=== PATIENT | female | born 1980 | race Hispanic/Latino ===

== ENCOUNTER 2018-01-21 10:43 | Emergency (ER) | payer SELFPAY ==
--- NOTE | 2018-01-21 11:16 | Emergency Department Report ---
ED HPI - General Chief complaint: Vaginal Bleeding Stated complaint: 3 MONTHS /SPOTTING/ VOMITING Time Seen by Provider: 01/21/18 11:02 Source: patient Mode of arrival: Ambulatory Limitations: No Limitations - History of Present Illness Initial comments: This is a 37-year-old female who presents with vaginal bleed and dorm . Patient states she took a home test 1 month ago and weight in all major Medicaid before going to see her [employer]. Patient states she woke up this morning and went to work and noticed some spotting while wiping and decided to come in for evaluation. Patient denies abdominal pain, low back pain. She is having some nausea but assumed it was related to . Last menstrual period was 10/06/2017, A2. Patient states she did have hypertension at the end of her last but it did not affect . MD Complaint: vaginal bleeding Onset/Timin -: hour(s) Severity scale (0 -10): 2 Improves with: none Worsens with: none Associated symptoms: nausea/vomiting, vaginal bleeding. denies: vaginal discharge, abdominal pain, dysuria, headache, vision changes, malaise, dysparuenia, rash, seizure, shortness of breath, syncope, weakness Vaginal bleeding: light :: Yes Number of weeks : 12 OB History - Current : no complications OB History - Previous Pregnancies: hypertension Last menstrual period: 10/06/17 Pre- care: none - Related Data : 5 Para: 2 Ab: 2 Home Medications Medication Instructions Recorded Confirmed Last Taken Vit Calc,Iron,Folic 1 each PO DAILY 12/26/15 02/08/16 02/08/16 [ Vitamins] 1000 Previous Rx's Medication Instructions Recorded Last Taken Type Nitrofurantoin Monohyd/M-Cryst 100 mg PO BID 5 Days #10 capsule 01/21/18 Unknown Rx [Macrobid 100 mg Capsule] 38/Iron/Folate 6/Dha 1 each PO DAILY #30 capsule 01/21/18 Unknown Rx [Prenate Dha Softgel] Allergies Allergy/AdvReac Type Severity Reaction Status Date / Time No Known Allergies Allergy Verified 02/06/16 15:14 ED Review of Systems ROS: Stated complaint: 3 MONTHS /SPOTTING/ VOMITING Other details as noted in HPI Constitutional: denies: chills, fever Respiratory: denies: cough, shortness of breath, wheezing Cardiovascular: denies: chest pain, palpitations Gastrointestinal: nausea, vomiting. denies: abdominal pain, diarrhea, constipation, hematemesis, melena, hematochezia Genitourinary: denies: urgency, dysuria, discharge Neurological: denies: headache, weakness, paresthesias Psychiatric: denies: anxiety, depression ED Past Medical Hx - Past Medical History Previous Medical History?: Yes Hx Hypertension: No Hx Congestive Heart Failure: No Hx Diabetes: No Hx Deep Vein Thrombosis: No Hx Renal Disease: No Hx Sickle Cell Disease: No Hx Seizures: No Hx Asthma: No Hx COPD: No Hx HIV: No - Surgical History Past Surgical History?: Yes Hx Cholecystectomy: Yes - Social History Smoking Status: Former Smoker Substance Use Type: None - Medications Home Medications: Home Medications Medication Instructions Recorded Confirmed Last Taken Type Vit Calc,Iron,Folic 1 each PO DAILY 12/26/15 02/08/16 02/08/16 History [ Vitamins] 1000 Nitrofurantoin Monohyd/M-Cryst 100 mg PO BID 5 Days #10 capsule 01/21/18 Unknown Rx [Macrobid 100 mg Capsule] 38/Iron/Folate 6/Dha 1 each PO DAILY #30 capsule 01/21/18 Unknown Rx [Prenate Dha Softgel] ED Physical Exam - General Limitations: No Limitations - Respiratory Respiratory exam: Present: normal lung sounds bilaterally. Absent: respiratory distress - Cardiovascular Cardiovascular Exam: Present: regular rate, normal rhythm. Absent: systolic murmur, diastolic murmur, rubs, gallop - GI/Abdominal GI/Abdominal exam: Present: soft, normal bowel sounds. Absent: distended, tenderness, guarding, rebound, rigid, organomegaly, mass - Back Exam Back exam: Present: normal inspection. Absent: CVA tenderness (R), CVA tenderness (L) - Neurological Exam Neurological exam: Present: alert, oriented X3 - Psychiatric Psychiatric exam: Present: normal affect, normal mood - Skin Skin exam: Present: warm, dry, intact, normal color. Absent: rash ED Course Vital Signs 01/21/18 01/21/18 10:46 11:16 Temperature 98.1 F Pulse Rate 77 Respiratory 18 18 Rate Blood Pressure 130/74 O2 Sat by Pulse 99 99 Oximetry ED Medical Decision Making - Radiology Data Radiology results: report reviewed EXAM: US OB lt; = 14 WEEKS FETUS HISTORY: preg with vag bleeding TECHNIQUE: Early obstetrical ultrasound was performed. Transabdominal imaging. PRIORS: None. FINDINGS: There is an intrauterine . Small fetus present with measurements corresponding to gestational age of approximately 12 weeks 5 days. This corresponds to RAJWINDER of 07/31/2018. cardiac activity seen, measured at 152 beats per minute. Active movement observed. The placenta is posterior. There is a small subchorionic hemorrhage inferiorly. Right ovary measures 2.6 x 1.3 x 2.6 cm. Left ovary measures 1.9 x 2.1 x 1.6 cm. IMPRESSION: Single live intrauterine of approximately 12 weeks 5 days gestational age. This corresponds to RAJWINDER of 07/31/2018. Small subchorionic hemorrhage. - Medical Decision Making This is a 37 y.o. female presents with vaginal bleeding and for one day. Patient was examined by me. Vitals are normal and patient is in no acute distress. Obtained a urinalysis, hCG qualitative, & OB ultrasound. Single live intrauterine of approximately 12 weeks 5 days gestational age. This corresponds to RAJWINDER of 07/31/2018. Small subchorionic hemorrhage. Start nitrofurantoin for acute cystitis. Patient informed of results. Start vitamins. Follow-up with [employer]. Patient given referrals. Patient discharged home in stable condition. Follow up with PCP in 2-3 days. Critical care attestation.: If time is entered above; I have spent that time in minutes in the direct care of this critically ill patient, excluding procedure time. ED Disposition Clinical Impression: confirmed by positive blood test, Nausea and vomiting during , Vaginal bleeding in Acute cystitis during Qualifiers: Trimester: first trimester Qualified Code(s): O23.11 - Infections of bladder in , first trimester Disposition: DC-01 TO HOME OR SELFCARE Is pt being admited?: No Does the pt Need Aspirin: No Condition: Stable Instructions: (ED), Urinary Tract Infection in Women (ED) Additional Instructions: Increase fluid intake daily. Start taking [id number] vitamins. Complete full course of antibiotics as prescribed. Follow-up with [employer] in 2-3 days. Prescriptions: Nitrofurantoin Monohyd/M-Cryst [Macrobid 100 mg Capsule] 100 mg PO BID 5 Days # 10 capsule 38/Iron/Folate 6/Dha [Prenate Dha Softgel] 1 each PO DAILY #30 capsule Referrals: [facility] [Outside] - 3-5 Days [facility] [Provider Group] - 3-5 Days [facility] [Provider Group] - 3-5 Days Forms: Work/School Release Form(ED) Time of Disposition: 15:11 Print Language: BURUNDIAN
[2018-01-21 11:37] LABS: Bilirubin,Urine NEG (Negative); Blood,Urine NEG (Negative); Color,Urine Yellow (Yellow); Mucus,Urine 1+ /HPF; Protein,Urine <15 mg/dL mg/dL (Negative); Urobilinogen,Urine < 2.0 mg/dL (<2.0)
--- NOTE | 2018-01-21 14:23 | Ultrasound Report ---
FINAL REPORT EXAM: US OB < = 14 WEEKS FETUS HISTORY: preg with vag bleeding TECHNIQUE: Early obstetrical ultrasound was performed. Transabdominal imaging. PRIORS: None. FINDINGS: There is an intrauterine . Small fetus present with measurements corresponding to gestational age of approximately 12 weeks 5 days. This corresponds to RAJWINDER of 07/31/2018. cardiac activity seen, measured at 152 beats per minute. Active movement observed. The placenta is posterior. There is a small subchorionic hemorrhage inferiorly. Right ovary measures 2.6 x 1.3 x 2.6 cm. Left ovary measures 1.9 x 2.1 x 1.6 cm. IMPRESSION: Single live intrauterine of approximately 12 weeks 5 days gestational age. This corresponds to RAJWINDER of 07/31/2018. Small subchorionic hemorrhage.
[2018-01-21 15:27] VITALS: BP 134/84
== END 2018-01-21 15:27 | disposition home or self-care (01) ==
LOC: ED 10:43
DX: O23.11 Infections of bladder in pregnancy, first trimester (principal); R10.2 Pelvic and perineal pain; Z87.891 Personal history of nicotine dependence; Z90.49 Acquired absence of other specified parts of digestive tract
CPT/HCPCS: 36415; 76801; 81001; 84702

== ENCOUNTER 2018-08-10 20:22 | Inpatient (IN) | payer MEDICAID ==
[2018-08-10] MEDS ORDERED: BRETHINE IVP PRN (22:14)
[2018-08-10] MEDS ORDERED: MINERAL OIL PO PRN (22:14)
[2018-08-10] MEDS ORDERED: PHENERGAN PO PRN (22:14)
[2018-08-10] MEDS ORDERED: XYLOCAINE 2% INFILTRATI ONE (22:14)
[2018-08-10] MEDS ORDERED: BRETHINE SUB-Q PRN (22:14)
[2018-08-10] MEDS ORDERED: STADOL IV PRN (22:14)
[2018-08-10] MEDS ORDERED: LACTATED RINGERS 1,000 ML IV SCH (23:00)
[2018-08-10] MEDS ORDERED: PITOCin/NS 30 UNIT/500ML 30 UNITS/500 ML BAG IV SCH (23:00)
[2018-08-10 23:07] LABS: Hematocrit 50.9 % (30.3-42.9); Hemoglobin 16.5 gm/dl (10.1-14.3); Mean Corpuscular HGB Conc 32 % (30-34); Mean Corpuscular Volume 86 fl (79-97); Platelet Count 208 K/mm3 (140-440); Red Blood Count 5.95 M/mm3 (3.65-5.03); Red Cell Distribution Width 16.5 % (13.2-15.2)
[2018-08-11] MEDS ORDERED: PITOCin/NS 30 UNIT/500ML 30 UNITS/500 ML BAG IV SCH (05:32)
--- NOTE | 2018-08-11 05:36 | History and Physical Report ---
History of Present Illness Date of examination: 08/11/18 (here for IOL @ 41 weeks) Date of admission: 08/10/18 20:22 History of present illness: EDC Confirmation: 07/31/2018 Gestational Age: 19 weeks Past History : 5 Term Births: 2 Living Children: 2 Para: 2 Aborta: 2 Elect. Ab: 1 Spont. Ab: 1 # 1 Delivery date: 1996 Weeks Gestation: 20 Delivery type: EAB Comments: denies complication # 2 Delivery date: 2013 Weeks Gestation: 10 Delivery type: SAB # 3 Delivery date: 04/2002 Weeks Gestation: term Delivery type: Anesthesia type: none Delivery location: [place] Sex: Male weight: 6-9 # 4 Delivery date: 02/09/2016 Weeks Gestation: 41+1 Delivery type: Vaginal Anesthesia type: IV medication Delivery location: [facility] Sex: female weight: 7.38 Name: Edgar Comments: left hand with 4 underdelveloped fingers Past Medical History: Reviewed history from 08/31/2015 and no changes required: Negative Past Medical History Past Surgical History: Reviewed history from 08/31/2015 and no changes required: Cholecystectomy Past Medical History 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 of genital herpes: no Partner hx. of genital herpes: no Rash, Viral, or Febrile illness since last LMP? no Varicella/Chicken Pox Status: Previous Disease TB Risk: no Genetic History ADVANCED MATERNAL AGE Congenital Heart Defect: Mom: no Dad: no Otf Disease: Mom: no Dad: no Thalassemia Mom: no Dad: no Neural Tube Defect Mom: no Dad: no Down's Syndrome Mom: no Dad: no Matt-Sachs Mom: no Dad: no Sickle Cell Disease/Trait Mom: no Dad: no Hemophilia Mom: no Dad: no Muscular Dystrophy Mom: no Dad: no Cystic Fibrosis Mom: no Dad: no [place] Chorea Mom: no Dad: no Mental Retardation Mom: no Dad: no Fragile X Mom: no Dad: no Other Genetic/Chromosomal Disorder Mom: no Dad: no Child w/other defect Mom: no Dad: no Enviromental Exposures Xray Exposure: no Medication, drug, or alcohol use since LMP: no Chemical/Other Exposure: no Exposure to Cat Liter: no Hx of Parvovirus (Fifth Disease): no Occupational Exposure to Children: none Active Medications (reviewed today): PNV FOLIC ACID + IRON 27-1 MG ORAL TABLET ( VIT-FE FUMARATE-FA) 1 tab P qdaily TERAZOL 7 0.4 % VAGINAL CREAM (TERCONAZOLE) insert into vagina qhs x 7 days FLAGYL 500 MG ORAL TABLET (METRONIDAZOLE) 1 tab PO BID x 7 days Current Allergies (reviewed today): No known allergies Past History - Obstetrical History Expected Date of Delivery: 07/31/18 Actual Gestation: 41 Week(s) 4 Day(s) : 5 Para: 2 Hx # Term Pregnancies: 2 Number of Pregnancies: 0 Spontaneous Abortions: 1 Induced : 1 Number of Living Children: 2 Medications and Allergies Allergies Allergy/AdvReac Type Severity Reaction Status Date / Time No Known Allergies Allergy Verified 02/06/16 15:14 Home Medications Medication Instructions Recorded Confirmed Last Taken Type Vit Calc,Iron,Folic 1 each PO DAILY 12/26/15 08/10/18 08/09/18 History [ Vitamins] Active Meds: Active Medications Butorphanol Tartrate (Stadol) 2 mg IV Q2H PRN PRN Reason: Pain , Severe (7-10) Ephedrine Sulfate (Ephedrine Sulfate) 10 mg IV Q2M PRN PRN Reason: Hypotension Lactated Ringer's (Lactated Ringers) 1,000 mls @ 125 mls/hr IV DIRECT NABILA Last Admin: 08/10/18 22:28 Dose: 125 mls/hr Documented by: Oxytocin/Sodium Chloride (Pitocin/Ns 20 Unit/1000ml Drip) 20 units in 1,000 mls @ 125 mls/hr IV DIRECT NABILA Oxytocin/Sodium Chloride (Pitocin/Ns 30 Unit/500ml) 30 units in 500 mls @ 4 mls/hr IV Q30MIN NABILA; Protocol Mineral Oil (Mineral Oil) 30 ml PO QHS PRN PRN Reason: Constipation Promethazine HCl (Phenergan) 25 mg PO Q6H PRN PRN Reason: Nausea And Vomiting Terbutaline Sulfate (Brethine) 0.25 mg SUB-Q ONCE PRN PRN Reason: Hyperstimulation/Hypertonicity Terbutaline Sulfate (Brethine) 0.25 mg IVP ONCE PRN PRN Reason: Hyperstimulation/Hypertonicity - Vital Signs Vital signs: Vital Signs Temp Pulse Resp BP Pulse Ox 99.3 F 111 H 18 129/77 95 08/10/18 20:43 08/10/18 20:43 08/10/18 20:43 08/10/18 20:43 08/10/18 20:43 Temp Pulse Resp BP Pulse Ox 99.3 F 102 H 18 129/77 94 08/10/18 20:43 08/10/18 21:24 08/10/18 20:43 08/10/18 20:44 08/10/18 21:24 - Physical Exam Breasts: Positive: deferred Cardiovascular: Regular rate, Normal S1, Normal S2 Lungs: Positive: Clear to auscultation Abdomen: Positive: normal appearance, soft, normal bowel sounds. Negative: distention, tenderness Genitourinary (Female): Positive: normal external genitalia Vulva: both: normal Vagina: Positive: normal moisture. Negative: discharge Cervix: Negative: lesion, discharge Uterus: Positive: normal size, normal contour Adnexa: both: normal Anus/Rectum: Positive: normal perianal skin, heme negative. Negative: rectal mass, hemorrhoids Extremities: Positive: normal Deep Tendon Reflex Grade: Normal +2 - Obstetrical FHR: category 1 Uterine Contraction Monitor Mode: Internal Cervical Dilatation: 4 (ROM ISE/IUPS placed) Cervical Effacement Percentage: 70 station: -2 Uterine Contraction Pattern: Irregular Uterine Tone Measurement Phase: Resting Uterine Contraction Intensity: Mild Results Result Diagrams: 08/10/18 21:30 Abnormal lab results 08/10/18 08/10/18 Range/Units 21:30 21:30 RBC 5.95 H (3.65-5.03) M/mm3 Hgb 16.5 H (10.1-14.3) gm/dl Hct 50.9 H (30.3-42.9) % RDW 16.5 H (13.2-15.2) % Crossmatch See Detail All other labs normal. GBS Negative HBsAg Screen Negative Negative *1 RPR Non Reactive Non Reactive *2 Rubella Antibodies, IgG 1.84 index Immune >0.99 *3 Non-immune <0.90 Equivocal 0.90 - 0.99 Immune >0.99 ABO Grouping A *4 Rh Factor Positive *5 Please note: Prior records for this patient's ABO / Rh type are not available for additional verification. Antibody Screen See Final Results Negative *6 Tests: (2) Ab Scr+Antibody ID ([id number]) ! Antibody Screen [A] Positive Negative *7 ! Antibody Id. #1 Anti-Jk(a) Villasenor *8 ! Candice Titer #1 1 *9 If a numerical titer result has been reported, please note that this result is the reciprocal value of titer results formerly reported as 1:2,1:4, 1:8, etc. These results are now reported as 2, 4, 8, etc. [employer] has recommended this change in titer reporting formats to simply reflect the reciprocal value of the titer. ! Antibody Id. #2 <No Reported Value> *10 ! Candice Titer #2 <No Reported Value> *11 Tests: (3) Profile I ([id number]) WBC [H] 11.6 x10E3/uL 3.4-10.8 *12 RBC 4.46 x10E6/uL 3.77-5.28 *13 Hemoglobin 12.3 g/dL 11.1-15.9 *14 Hematocrit 38.8 % 34.0-46.6 *15 MCV 87 fL 79-97 *16 MCH 27.6 pg 26.6-33.0 *17 MCHC 31.7 g/dL 31.5-35.7 *18 RDW 15.1 % 12.3-15.4 *19 Platelets 241 x10E3/uL 150-379 *20 Neutrophils 73 % Not Estab. *21 Lymphs 21 % Not Estab. *22 Monocytes 5 % Not Estab. *23 Eos 1 % Not Estab. *24 Basos 0 % Not Estab. *25 ! Immature Cells <No Reported Value> *26 Neutrophils (Absolute) [H] 8.4 x10E3/uL 1.4-7.0 *27 Lymphs (Absolute) 2.4 x10E3/uL 0.7-3.1 *28 Monocytes(Absolute) 0.6 x10E3/uL 0.1-0.9 *29 Eos (Absolute) 0.2 x10E3/uL 0.0-0.4 *30 Baso (Absolute) 0.0 x10E3/uL 0.0-0.2 *31 ! Immature Granulocytes 0 % Not Estab. *32 ! Immature Grans (Abs) 0.0 x10E3/uL 0.0-0.1 *33 ! NRBC <No Reported Value> *34 Hematology Comments: <No Reported Value> *35 Tests: (4) Cystic Fibrosis Profile ([id number]) ! CF, Screen Comment: *36 RESULTS: Negative for 32 mutations analyzed Tests: (5) HB Solu + Rflx Frac ([id number]) Hemoglobin (Hgb) Solubility Negative Negative *38 Tests: (6) Panel 285486 (140095) HIV Screen 4th Generation wRfx Non Reactive Non Reactive *39 Tests: (7) HCV Ab w/Rflx to Verification (095335) ! HCV Ab <0.1 s/co ratio 0.0-0.9 *40 Tests: (8) Comment: ([id number]) ! Comment: SPRCS *41 Non reactive HCV antibody screen is consistent with no HCV infection, unless recent infection is suspected or other evidence exists to indicate HCV infection. Tests: (9) Urine Culture, Routine ([id number]) Urine Culture, Routine Final report *42 Tests: (10) Result ([id number]) ! Result 1 No growth *43 Assessment and Plan - Patient Problems (1) 41 weeks gestation of Onset Date: ~08/11/18 Current Visit: No Status: Acute Plan to address problem: 37yo @ 41 weeks presenting for IOL. GBS negative Pitocin started. Orders in EMR (2) Jkb antibody positive Onset Date: ~08/11/18 Current Visit: No Status: Acute Plan to address problem: JK antibody noted by blood bank Aware for potential crossmatch if needed.
[2018-08-11] MEDS ORDERED: MINERAL OIL PO PRN (05:59)
[2018-08-11] MEDS ORDERED: SUBLIMAZE IV PRN (05:59)
[2018-08-11] MEDS ORDERED: XYLOCAINE 2% INFILTRATI ONE (05:59)
[2018-08-11] MEDS ORDERED: ZOFRAN IV PRN (05:59)
[2018-08-11] MEDS ORDERED: LACTATED RINGERS 1,000 ML IV SCH (06:00)
--- NOTE | 2018-08-11 07:31 | Event Note ---
Date: 08/11/18 (ISE replaced X 3) Attempting to establish internal ISE MATTIE charge nurse made aware of issue
[2018-08-11] MEDS: PITOCin/NS 20 UNIT/1000ML DRIP 20 UNITS/1,000 ML BAG IV SCH ×2 (09:30→10:35)
--- NOTE | 2018-08-11 09:49 | Procedure Note ---
OB Delivery Note - Delivery Date of Delivery: 08/11/18 Medical Reception: CORINNE MOON Estimated blood loss: 300cc - Vaginal Delivery presentation: vertex Delivery position: OA Intrapartum events: none Delivery induction: oxytocin Delivery augmentation: rupture of membranes Delivery monitor: internal FHT, internal uterine Route of delivery: Delivery placenta: spontaneous Delivery cord: 3 umbilical vessels Episiotomy: none Delivery laceration: 1st degree (no repair needed hemostatic) Anesthesia: none Delivery comments: live born female over intact perineum Baby skin to skin. Cord blood obtained Placenta and membrane delivered complete and intact, 3 vessel cord. Pit IVFs. 1st degree lac noted hemostatic, no repair. Mom and baby remain LDR stable. - A at 1 minute: 8 at 5 minutes: 9 Gender: Female (wgt 8-6)
[2018-08-11] MEDS ORDERED: TYLENOL PO PRN (10:30)
[2018-08-11] MEDS ORDERED: LANSINOH TP PRN (10:30)
[2018-08-11] MEDS ORDERED: SODIUM CHLORIDE FLUSH SYRINGE 10 ML IV PRN (10:30)
[2018-08-11] MEDS ORDERED: TUCKS PAD TP PRN (10:30)
[2018-08-11] MEDS ORDERED: PHENERGAN PO PRN (10:30)
[2018-08-11] MEDS ORDERED: DULCOLAX PR PRN (10:30)
[2018-08-11] MEDS ORDERED: BENADRYL PO PRN (10:30)
[2018-08-11] MEDS: NORCO 5/325 PO PRN ×2 (10:33→16:59)
[2018-08-11] MEDS: IBUPROFEN PO SCH ×2 (10:33→17:00)
[2018-08-11 20:43] LABS: Hematocrit 38.5 % (30.3-42.9); Hemoglobin 12.9 gm/dl (10.1-14.3)
[2018-08-11] MEDS ORDERED: MILK OF MAGNESIA PO PRN (22:00)
[2018-08-12] MEDS: IBUPROFEN PO SCH ×3 (00:14→12:05)
[2018-08-12] MEDS: NORCO 5/325 PO PRN ×2 (05:08→13:54)
[2018-08-12] MEDS ORDERED: BOOSTRIX IM ONE (06:00)
--- NOTE | 2018-08-12 07:58 | Discharge Summary ---
Providers - Providers Date of Admission: 08/10/18 20:22 Date of discharge: 08/12/18 (desires d/c home ) Attending physician: MIKEY VARELA Primary care physician: MIKEY VARELA Hospitalization Reason for admission: induction of labor Condition: Good Pertinent studies: post delivery H&H 12.9/38.5 Procedures: Hospital course: uncomplicated and course Disposition: DC-01 TO HOME OR SELFCARE - Discharge Diagnoses (1) (normal spontaneous vaginal delivery) Status: Acute Core Measure Documentation - Palliative Care Palliative Care/ Comfort Measures: Not Applicable - Core Measures Any of the following diagnoses?: none Exam - Constitutional Vitals: Temp Pulse Resp BP Pulse Ox 98.3 F 94 H 18 112/60 97 08/12/18 03:03 08/12/18 03:03 08/12/18 05:08 08/12/18 03:03 08/12/18 03:03 General appearance: Present: no acute distress, well-nourished - EENT Eyes: Present: PERRL ENT: hearing intact, clear oral mucosa - Neck Neck: Present: supple, normal ROM - Respiratory Respiratory effort: normal Respiratory: bilateral: CTA - Cardiovascular Heart Sounds: Present: S1 & S2. Absent: rub, click - Extremities Extremities: pulses symmetrical, No edema Peripheral Pulses: within normal limits - Abdominal General gastrointestinal: Present: soft, non-tender, non-distended, normal bowel sounds Female genitourinary: Present: normal - Integumentary Integumentary: Present: clear, warm, dry - Musculoskeletal Musculoskeletal: gait normal, strength equal bilaterally - Psychiatric Psychiatric: appropriate mood/affect, intact judgment & insight - Neurologic Neurologic: CNII-XII intact, moves all extremities - Additional findings Additional findings: fundus firm, lochia scant, breast and bottle feeding Plan Activity: no restrictions Diet: regular Follow up with: MIKEY VARELA MD [Primary Care Provider] - 09/10/18 (Congratulations!! Please call [phone] to schedule your visit in 4 weeks. Call for any questions or concerns. )
[2018-08-12] MEDS ORDERED: M-M-R II VACCINE SUB-Q ONE (11:00)
[2018-08-12 13:57] VITALS: BP 120/72
== END 2018-08-12 14:25 | disposition home or self-care (01) | DRG 775 ==
LOC: LD 20:22 → OB 08-11 11:38
PROVIDERS: ADMIT Obstetrics & Gynecology; ATTEND Obstetrics & Gynecology
PROC: 10E0XZZ Delivery of Products of Conception, External Approach (ICD-10-PCS; principal; 2018-08-11)
PROC: 3E033VJ Introduction of Other Hormone into Peripheral Vein, Percutaneous Approach (ICD-10-PCS; 2018-08-11)
DX: O70.0 First degree perineal laceration during delivery (principal); Z3A.41 41 weeks gestation of pregnancy; Z37.0 Single live birth
CPT/HCPCS: 36415; 85014; 85018; 85027; 86592; 86850; 86870; 86900; 86901; 86922; G0378; J2590; J3010; J7120